=== PATIENT | male | born 1955 | race Caucasian/White ===

== ENCOUNTER 2024-06-30 11:39 | Inpatient (IN) | payer OTHER, SELFPAY ==
[2024-06-30] VITALS (8 sets, daily range): BP systolic 97–149; BP diastolic 58–136; BMI 24.2; BMI 23.3
[2024-06-30] MEDS: TYLENOL/FEVERALL 650 MG RECTAL (09:02)
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
[2024-06-30 09:13] LABS: % Basophils 0.2 % (0-2); % Eosinophils 0.1 % (0-6); % Immature Granulocytes 0.5 % (0-0.5); % Lymphocytes 7.7 % (20.5-51.1); % Monocytes 7.3 % (1.7-9.3); % Neutrophils 84.2 % (42.2-75.2); Absolute Immature Granulocytes 0.1 10^3/uL (0-0.05); Absolute Neutrophils 11.2 10^3/uL (1.4-6.5); Hematocrit 31.6 % (39.0-52.0); Hemoglobin 10.3 g/dL (13.0-18.0); Mean Corp Hgb Conc. 32.6 g/dL (33.0-37.0); Mean Corpuscular Hgb 29.3 pg (27.0-31.0); Mean Platelet Volume 9.8 fL (7.4-10.4); Nucleated Red Blood Cells % 0 % (-); Platelet Count 250 10^3/uL (130-400); Red Blood Cell Count 3.51 10^6/uL (4.70-6.10); Red Cell Dist. Width 15.2 % (11.5-14.5); White Blood Cell Count 13.3 10^3/uL (4.8-10.8)
[2024-06-30 09:16] LABS: Urine Albumin 2+ (Neg - Trace); Urine Bilirubin Negative (Negative); Urine Character Very Cloudy (Clear); Urine Color Amber; Urine Glucose Negative (Negative); Urine Ketone Negative (Negative); Urine Leukocyte 2+ (Negative); Urine Nitrite Positive (Negative); Urine Occult Blood 4+ (Negative); Urine Urobilinogen Negative (Neg - 1+)
[2024-06-30 09:29] LABS: Lactic Acid 1.4 mmol/L (0.7-2.0)
[2024-06-30] MEDS: ROCEPHIN 1000 MG IV (09:47)
[2024-06-30] MEDS: NSS 1000 IV ×2 (09:48→18:15)
[2024-06-30 10:21] LABS: Urine Bacteria Many (Negative); Urine Red Blood Cell 16-20 /HPF (0-2); Urine White Cell 60-70 /HPF (0-5)
[2024-06-30 10:33] LABS: ALT (SGPT) 25 U/L (0-50); AST (SGOT) 17 U/L (17-59); Albumin 3.1 g/dl (3.5-5.0); Alkaline Phosphatase 105 U/L (38-126); Blood Urea Nitrogen 67 mg/dl (9-20); Calcium 8.9 mg/dl (8.4-10.2); Carbon Dioxide 22 mmol/L (22-30); Chloride 100 mmol/L (98-107); Estimated Creatinine Clearance 29 ml/min; Glucose 118 mg/dl (70-99); Sodium 137 mmol/L (135-145); Total Bilirubin 0.8 mg/dl (0.2-1.3); Total Protein 6.2 g/dl (6.3-8.2)
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
[2024-06-30 17:55] LABS: Iron 32 ug/dl (49-181)
[2024-06-30 18:04] LABS: Percent Saturation 19 % (20-50); Total Iron Binding Capacity 163 ug/dl (261-462)
[2024-06-30] MEDS: PROTONIX 40 MG PO (18:14)
[2024-06-30] MEDS: STERILE WATER FOR INJECTION 10 ML IV (18:14)
[2024-06-30] MEDS: MAXIPIME 1000 MG IV (18:14)
[2024-06-30 18:20] LABS: TSH 1.39 uIU/ml (0.47-4.68)
[2024-06-30] MEDS: TYLENOL 650 MG PO (18:21)
--- NOTE | 2024-06-30 18:38 | PTCARENOTE ---
Patient received from ED. Patient with a temp of 100.2. Tylenol given. other VSS stable. Patient whith chronic jenkins draining yellow/ brown urine, biliary drain and abcess drain on L back. Skin assessment documented. See documentation. IVF hung per
order. Patient reading NSR on tele monitor. Patient AAOx3. Call gee within reach. Regular diet in. Patient ordered dinner. Brother at bedside.
[2024-06-30 18:39] LABS: Vitamin B12 707 pg/ml (239-931)
[2024-06-30 19:43] LABS: Procalcitonin 5.33 ng/ml (0.0-0.25)
--- NOTE | 2024-06-30 19:45 | PTCARENOTE ---
House BRIEF WRITER notified of Pt's procalcitonin 5.33. Cefepime initiated on 2N, IVF infusing. VSS. No new orders at this time.
[2024-06-30] MEDS: RISPERDAL 0.5 MG PO (20:06)
[2024-06-30] MEDS: NEURONTIN 300 MG PO (20:06)
[2024-06-30] MEDS: ELIQUIS 5 MG PO (20:06)
[2024-06-30] MEDS: MOLNUPIRAVIR (EUA) 800 MG PO (21:19)
[2024-06-30] MEDS: TRANDATE PO (21:20)
[2024-06-30] MEDS: REMERON 15 MG PO (21:23)
[2024-07-01] MEDS: NSS 1000 IV ×3 (02:17→16:35)
[2024-07-01 07:06] LABS: Blood Urea Nitrogen 40 mg/dl (9-20); Calcium 8.4 mg/dl (8.4-10.2); Carbon Dioxide 21 mmol/L (22-30); Chloride 107 mmol/L (98-107); Estimated Creatinine Clearance 66 ml/min; Glucose 92 mg/dl (70-99); Magnesium 1.8 mg/dl (1.6-2.3); Potassium 3.5 mmol/L (3.5-5.1); Sodium 140 mmol/L (135-145); eGFR > 60.00
[2024-07-01 07:15] VITALS: BP 107/59
[2024-07-01] MEDS: PROTONIX 40 MG PO (08:34)
[2024-07-01] MEDS: VITAMIN C 500 MG PO (08:34)
[2024-07-01] MEDS: FEOSOL 325 MG PO (08:34)
[2024-07-01] MEDS: ELIQUIS 5 MG PO ×2 (08:34→21:09)
[2024-07-01] MEDS: RISPERDAL 0.5 MG PO ×2 (08:34→21:09)
[2024-07-01] MEDS: NEURONTIN 300 MG PO ×2 (08:34→21:09)
[2024-07-01] MEDS: TRANDATE PO (08:35)
[2024-07-01] MEDS: MOLNUPIRAVIR (EUA) 800 MG PO ×2 (08:54→21:11)
[2024-07-01 09:04] LABS: Blood Urea Nitrogen 38 mg/dl (9-20); Calcium 8.5 mg/dl (8.4-10.2); Carbon Dioxide 22 mmol/L (22-30); Chloride 107 mmol/L (98-107); Estimated Creatinine Clearance 66 ml/min; Glucose 95 mg/dl (70-99); Magnesium 1.7 mg/dl (1.6-2.3); Potassium 3.5 mmol/L (3.5-5.1); Sodium 139 mmol/L (135-145); eGFR > 60.00
[2024-07-01 09:22] LABS: % Basophils 0.1 % (0-2); % Eosinophils 1.3 % (0-6); % Immature Granulocytes 0.5 % (0-0.5); % Lymphocytes 11.6 % (20.5-51.1); % Monocytes 7.5 % (1.7-9.3); Absolute Eosinophils 0.1 10^3/uL (0-0.7); Absolute Immature Granulocytes 0.1 10^3/uL (0-0.05); Absolute Lymphocytes 1.1 10^3/uL (1.2-3.4); Absolute Monocytes 0.7 10^3/uL (0.1-0.6); Absolute Neutrophils 7.7 10^3/uL (1.4-6.5); Hematocrit 23.8 % (39.0-52.0); Hemoglobin 7.5 g/dL (13.0-18.0); Mean Corp Hgb Conc. 31.5 g/dL (33.0-37.0); Mean Corpuscular Volume 91.9 fL (80.0-94.0); Mean Platelet Volume 9.3 fL (7.4-10.4); Nucleated Red Blood Cells % 0 % (-); Platelet Count 225 10^3/uL (130-400); Red Blood Cell Count 2.59 10^6/uL (4.70-6.10); Red Cell Dist. Width 14.7 % (11.5-14.5); White Blood Cell Count 9.7 10^3/uL (4.8-10.8)
--- NOTE | 2024-07-01 10:15 | PTOTSP ---
Dysphagia Evaluation
No significant signs concerning for oral/pharyngeal dysphagia or aspiration observed.
Patient with concern for R midlung atelectasis or PNA on CXR 06/30/2024 but also with COVID-19 infection. Low suspicion for aspiration. If this does not resolved with medical treatment and there is concern for silent aspiration please reconsult via
video swallow study.
Recommend:
1. Regular, Thin Liquids
2. Medications as best tolerated
3. General aspiration precautions
4. Oral care 2x daily
5. Will sign off. Please reconsult as appropriate.
--- NOTE | 2024-07-01 10:25 | WOUNDNOTE ---
RIGHT LOWER LEG
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
[2024-07-01 11:33] VITALS: BP 106/58
[2024-07-01] MEDS: FERRLECIT 110 MG IV (12:45)
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
[2024-07-01 14:05] VITALS: BMI 23.3
[2024-07-01 15:15] VITALS: BP 113/61
[2024-07-01] MEDS: MAXIPIME 1000 MG IV (16:35)
[2024-07-01] MEDS: STERILE WATER FOR INJECTION 10 ML IV (16:35)
[2024-07-01] MEDS: TYLENOL 650 MG PO (16:45)
[2024-07-01 19:23] VITALS: BP 122/51
[2024-07-01 21:06] VITALS: BP 122/72
[2024-07-01] MEDS: REMERON 15 MG PO (21:09)
[2024-07-01] MEDS: TRANDATE 100 MG PO (21:09)
[2024-07-01 23:44] VITALS: BP 134/64
[2024-07-02 03:47] VITALS: BP 119/65
[2024-07-02 06:08] LABS: % Basophils 0.2 % (0-2); % Eosinophils 1.7 % (0-6); % Immature Granulocytes 0.9 % (0-0.5); % Lymphocytes 15.8 % (20.5-51.1); % Monocytes 9.1 % (1.7-9.3); % Neutrophils 72.3 % (42.2-75.2); Absolute Eosinophils 0.2 10^3/uL (0-0.7); Absolute Immature Granulocytes 0.1 10^3/uL (0-0.05); Absolute Lymphocytes 1.5 10^3/uL (1.2-3.4); Absolute Monocytes 0.8 10^3/uL (0.1-0.6); Absolute Neutrophils 6.6 10^3/uL (1.4-6.5); Hematocrit 25.9 % (39.0-52.0); Mean Corp Hgb Conc. 30.9 g/dL (33.0-37.0); Mean Corpuscular Hgb 30.3 pg (27.0-31.0); Mean Corpuscular Volume 98.1 fL (80.0-94.0); Mean Platelet Volume 9.4 fL (7.4-10.4); Nucleated Red Blood Cells % 0 % (-); Platelet Count 241 10^3/uL (130-400); Red Blood Cell Count 2.64 10^6/uL (4.70-6.10); Red Cell Dist. Width 14.5 % (11.5-14.5); White Blood Cell Count 9.2 10^3/uL (4.8-10.8)
[2024-07-02 06:29] LABS: Blood Urea Nitrogen 31 mg/dl (9-20); Calcium 8.4 mg/dl (8.4-10.2); Carbon Dioxide 22 mmol/L (22-30); Chloride 111 mmol/L (98-107); Estimated Creatinine Clearance 73 ml/min; Glucose 96 mg/dl (70-99); Potassium 3.7 mmol/L (3.5-5.1); Sodium 142 mmol/L (135-145); eGFR > 60.00
[2024-07-02 07:57] VITALS: BP 123/61
[2024-07-02] MEDS: RISPERDAL 0.5 MG PO ×2 (09:03→20:35)
[2024-07-02] MEDS: PROTONIX 40 MG PO (09:03)
[2024-07-02] MEDS: TRANDATE 100 MG PO ×2 (09:03→20:35)
[2024-07-02] MEDS: NEURONTIN 300 MG PO ×2 (09:03→20:35)
[2024-07-02] MEDS: FEOSOL 325 MG PO (09:04)
[2024-07-02] MEDS: VITAMIN C 500 MG PO (09:04)
[2024-07-02] MEDS: ELIQUIS 5 MG PO ×2 (09:04→20:35)
[2024-07-02] MEDS: MOLNUPIRAVIR (EUA) 800 MG PO ×2 (09:06→20:35)
[2024-07-02 11:15] VITALS: BP 134/67
[2024-07-02 11:47] VITALS: BP 130/75; PULSE 75; O2SAT 95
--- NOTE | 2024-07-02 14:13 | CM ---
Patient seen at bedside
Dx: Covid +, Complicated UTI
PT/OT eval rec acute rehab
Spoke with patient & brother prefer [facility]
Referral placed in [facility]
CM will need to obtain insurance authorization
PLAN: PT/OT rec acute rehab-referral in [facility], will need to obtain ins auth
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
[2024-07-02] MEDS: STERILE WATER FOR INJECTION 10 ML IV (19:00)
[2024-07-02 19:03] VITALS: BP 131/71
[2024-07-02] MEDS: MAXIPIME 1000 MG IV (19:10)
[2024-07-02] MEDS: REMERON 15 MG PO (20:36)
[2024-07-02 23:30] VITALS: BP 140/75
[2024-07-03] VITALS (7 sets, daily range): BP systolic 121–146; BP diastolic 65–78; PULSE 80; O2SAT 95
[2024-07-03 05:17] LABS: % Basophils 0.4 % (0-2); % Eosinophils 2.9 % (0-6); % Immature Granulocytes 1.3 % (0-0.5); % Lymphocytes 13.3 % (20.5-51.1); % Monocytes 7.7 % (1.7-9.3); % Neutrophils 74.4 % (42.2-75.2); Absolute Eosinophils 0.3 10^3/uL (0-0.7); Absolute Immature Granulocytes 0.1 10^3/uL (0-0.05); Absolute Lymphocytes 1.4 10^3/uL (1.2-3.4); Absolute Monocytes 0.8 10^3/uL (0.1-0.6); Hemoglobin 8.3 g/dL (13.0-18.0); Mean Corp Hgb Conc. 29.6 g/dL (33.0-37.0); Mean Corpuscular Hgb 29.2 pg (27.0-31.0); Mean Corpuscular Volume 98.6 fL (80.0-94.0); Nucleated Red Blood Cells % 0 % (-); Platelet Count 241 10^3/uL (130-400); Red Blood Cell Count 2.84 10^6/uL (4.70-6.10); Red Cell Dist. Width 14.5 % (11.5-14.5); White Blood Cell Count 10.7 10^3/uL (4.8-10.8)
[2024-07-03 05:40] LABS: Blood Urea Nitrogen 24 mg/dl (9-20); Calcium 8.7 mg/dl (8.4-10.2); Carbon Dioxide 25 mmol/L (22-30); Chloride 110 mmol/L (98-107); Estimated Creatinine Clearance 73 ml/min; Glucose 99 mg/dl (70-99); Potassium 3.6 mmol/L (3.5-5.1); Sodium 145 mmol/L (135-145); eGFR > 60.00
[2024-07-03] MEDS: RISPERDAL 0.5 MG PO ×2 (10:07→21:15)
[2024-07-03] MEDS: TRANDATE 100 MG PO ×2 (10:07→21:13)
[2024-07-03] MEDS: VITAMIN C 500 MG PO (10:07)
[2024-07-03] MEDS: ELIQUIS 5 MG PO ×2 (10:07→21:14)
[2024-07-03] MEDS: PROTONIX 40 MG PO (10:07)
[2024-07-03] MEDS: NEURONTIN 300 MG PO ×2 (10:07→21:14)
[2024-07-03] MEDS: FEOSOL 325 MG PO (10:08)
[2024-07-03] MEDS: MOLNUPIRAVIR (EUA) 800 MG PO ×2 (10:18→21:15)
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
[2024-07-03] MEDS: MAXIPIME 1000 MG IV (17:11)
[2024-07-03] MEDS: STERILE WATER FOR INJECTION 10 ML IV (17:11)
--- NOTE | 2024-07-03 18:36 | PTCARENOTE ---
changed pt's colostomy appliance, leaking to the left side
[2024-07-03] MEDS: REMERON 15 MG PO (21:15)
[2024-07-04 03:45] VITALS: BP 147/78
[2024-07-04 06:21] LABS: Hematocrit 26.1 % (39.0-52.0); Hemoglobin 7.9 g/dL (13.0-18.0); Mean Corp Hgb Conc. 30.3 g/dL (33.0-37.0); Mean Corpuscular Hgb 29.7 pg (27.0-31.0); Mean Corpuscular Volume 98.1 fL (80.0-94.0); Platelet Count 250 10^3/uL (130-400); Red Blood Cell Count 2.66 10^6/uL (4.70-6.10); Red Cell Dist. Width 14.3 % (11.5-14.5); White Blood Cell Count 8.7 10^3/uL (4.8-10.8)
[2024-07-04 06:44] LABS: Blood Urea Nitrogen 17 mg/dl (9-20); Calcium 8.5 mg/dl (8.4-10.2); Carbon Dioxide 28 mmol/L (22-30); Chloride 108 mmol/L (98-107); Estimated Creatinine Clearance 91 ml/min; Glucose 87 mg/dl (70-99); Potassium 3.7 mmol/L (3.5-5.1); Sodium 141 mmol/L (135-145); eGFR > 60.00
[2024-07-04 07:10] VITALS: BP 148/79
[2024-07-04 08:44] VITALS: BP 125/60
[2024-07-04] MEDS: NEURONTIN 300 MG PO ×2 (08:55→22:13)
[2024-07-04] MEDS: RISPERDAL 0.5 MG PO ×2 (08:56→22:14)
[2024-07-04] MEDS: VITAMIN C 500 MG PO (08:56)
[2024-07-04] MEDS: TRANDATE 100 MG PO ×2 (08:56→22:13)
[2024-07-04] MEDS: FEOSOL 325 MG PO (08:56)
[2024-07-04] MEDS: ELIQUIS 5 MG PO ×2 (08:56→22:13)
[2024-07-04] MEDS: PROTONIX 40 MG PO (09:14)
[2024-07-04] MEDS: MOLNUPIRAVIR (EUA) 800 MG PO ×2 (09:14→22:14)
[2024-07-04] MEDS: CIPRO 500 MG PO ×2 (09:15→22:13)
[2024-07-04] MEDS: MIRALAX 17 GRAMS PO (09:15)
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
--- NOTE | 2024-07-04 11:19 | CM ---
Chart reviewed
Spoke with pts brother regarding rehab/snf
[facility]'s - 1st choice - LM at admissions
[facility] - staff unavailable
Brother given choice list from [employer] to review for additional options
Will need auth
Plan - snf/rehab when bed obtained
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
[2024-07-04 15:50] VITALS: BP 130/73
[2024-07-04] MEDS: REMERON 15 MG PO (22:13)
[2024-07-04 23:27] VITALS: BP 125/60
[2024-07-05 05:46] LABS: % Basophils 0.1 % (0-2); % Eosinophils 3.5 % (0-6); % Immature Granulocytes 1.1 % (0-0.5); % Lymphocytes 18.1 % (20.5-51.1); % Monocytes 7.5 % (1.7-9.3); % Neutrophils 69.7 % (42.2-75.2); Absolute Eosinophils 0.3 10^3/uL (0-0.7); Absolute Immature Granulocytes 0.1 10^3/uL (0-0.05); Absolute Lymphocytes 1.7 10^3/uL (1.2-3.4); Absolute Monocytes 0.7 10^3/uL (0.1-0.6); Absolute Neutrophils 6.7 10^3/uL (1.4-6.5); Hematocrit 25.2 % (39.0-52.0); Hemoglobin 7.6 g/dL (13.0-18.0); Mean Corp Hgb Conc. 30.2 g/dL (33.0-37.0); Mean Corpuscular Hgb 29.2 pg (27.0-31.0); Mean Corpuscular Volume 96.9 fL (80.0-94.0); Mean Platelet Volume 8.9 fL (7.4-10.4); Nucleated Red Blood Cells % 0 % (-); Platelet Count 248 10^3/uL (130-400); White Blood Cell Count 9.6 10^3/uL (4.8-10.8)
[2024-07-05 06:10] LABS: ALT (SGPT) 12 U/L (0-50); AST (SGOT) 15 U/L (17-59); Albumin 2.4 g/dl (3.5-5.0); Alkaline Phosphatase 65 U/L (38-126); Blood Urea Nitrogen 14 mg/dl (9-20); Calcium 8.3 mg/dl (8.4-10.2); Carbon Dioxide 26 mmol/L (22-30); Chloride 104 mmol/L (98-107); Estimated Creatinine Clearance 122 ml/min; Glucose 91 mg/dl (70-99); Potassium 3.4 mmol/L (3.5-5.1); Sodium 140 mmol/L (135-145); Total Bilirubin 0.3 mg/dl (0.2-1.3); eGFR > 60.00
[2024-07-05 07:15] VITALS: BP 136/78
[2024-07-05] MEDS: TRANDATE 100 MG PO (09:19)
[2024-07-05] MEDS: VITAMIN C 500 MG PO (09:19)
[2024-07-05] MEDS: ELIQUIS 5 MG PO ×2 (09:19→20:05)
[2024-07-05] MEDS: FEOSOL 325 MG PO (09:19)
[2024-07-05] MEDS: PROTONIX 40 MG PO (09:19)
[2024-07-05] MEDS: MOLNUPIRAVIR (EUA) 800 MG PO (09:19)
[2024-07-05] MEDS: CIPRO 500 MG PO ×2 (09:19→20:05)
[2024-07-05] MEDS: NEURONTIN 300 MG PO ×2 (09:19→20:04)
[2024-07-05] MEDS: RISPERDAL 0.5 MG PO ×2 (09:19→20:06)
[2024-07-05] MEDS: MIRALAX 17 GRAMS PO (09:20)
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
--- NOTE | 2024-07-05 12:36 | CM ---
patient chart reviewed.
PT recommend acute vs. snf - [place] liaison called from [facility]. She stated they are reviewing chart regarding if they will accept patient.
Patient brother Gianluca prefers him not to return to [facility]. Referral placed to [facility]. RONAL with Aparna at [facility]
Gianluca will contact CM later with other SNF options
PLAN: Acute vs. SNF - CM will need to obtain insurance authorization
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
[2024-07-05 14:14] VITALS: BP 129/76; PULSE 83; O2SAT 94
[2024-07-05 14:34] VITALS: BP 129/76; PULSE 83; O2SAT 94
[2024-07-05 15:05] VITALS: BP 118/87
[2024-07-05] MEDS: TRANDATE PO ×2 (20:05→20:11)
[2024-07-05] MEDS: REMERON 15 MG PO (22:23)
[2024-07-05 23:45] VITALS: BP 135/76
[2024-07-06 06:00] VITALS: BMI 22.2
[2024-07-06 07:10] VITALS: BP 129/77
[2024-07-06] MEDS: MIRALAX 17 GRAMS PO (08:45)
[2024-07-06] MEDS: TRANDATE 100 MG PO ×2 (08:46→20:21)
[2024-07-06] MEDS: ELIQUIS 5 MG PO ×2 (08:46→20:21)
[2024-07-06] MEDS: VITAMIN C 500 MG PO (08:46)
[2024-07-06] MEDS: NEURONTIN 300 MG PO ×2 (08:47→20:21)
[2024-07-06] MEDS: RISPERDAL 0.5 MG PO ×2 (08:47→20:21)
[2024-07-06] MEDS: CIPRO 500 MG PO ×2 (08:47→20:21)
[2024-07-06] MEDS: PROTONIX 40 MG PO (08:47)
[2024-07-06] MEDS: FEOSOL 325 MG PO (08:47)
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
--- NOTE | 2024-07-06 11:13 | CM ---
Addendum entered by An Álvarez 07/06/24 15:20:
Call back from Eloina at [facility] they cannot accept patient.
Original Note:
Spoke with Eloina liacharley at [facility] - PT rec acute vs. SNF
Eloina requested updated PT/OT notes - faxed to her - stated medical staff director to review
tt Dr. Edmonds regarding PM&R consult - also spoke with Vivian yuen [facility]
Insurance authorization will need to be obtained prior to d/c
family does not wish for patient to return to [facility]
Multiple referrals in [facility] - [facility]
PLAN: acute vs. SNF
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
[2024-07-06 15:55] VITALS: BP 118/78
[2024-07-06] MEDS: REMERON 15 MG PO (21:53)
[2024-07-06 23:27] VITALS: BP 130/68
[2024-07-07 06:00] VITALS: BMI 22.0
[2024-07-07 07:15] VITALS: BP 150/72
[2024-07-07] MEDS: CIPRO 500 MG PO ×2 (08:42→19:57)
[2024-07-07] MEDS: VITAMIN C 500 MG PO (08:43)
[2024-07-07] MEDS: NEURONTIN 300 MG PO ×2 (08:43→19:56)
[2024-07-07] MEDS: FEOSOL 325 MG PO (08:43)
[2024-07-07] MEDS: TRANDATE 100 MG PO ×2 (08:43→19:57)
[2024-07-07] MEDS: ELIQUIS 5 MG PO ×2 (08:43→19:57)
[2024-07-07] MEDS: RISPERDAL 0.5 MG PO ×2 (08:43→19:57)
[2024-07-07] MEDS: PROTONIX 40 MG PO (08:43)
[2024-07-07] MEDS: MIRALAX PO (08:43)
--- NOTE | 2024-07-07 13:46 | CM ---
Addendum entered by An Álvarez 07/07/24 15:37:
Spoke with Sonali at [facility] - will have medical scheduler review & call rehabilitation caseworker tomorrow morning.
Original Note:
Spoke with patient brother Gianluca - He requested a referral be sent to [facility] for Rehab in [place], [place] (acute)
Spoke with Leila in admissions & [facility]. She will look at it today & call CM if they can accept patient.
Eva at [facility] stated they can accept patient - bed available. Gianluca agreeable with [facility] if [facility] cannot accept.
Will need to get insurance authorization for SNF unless [facility] will accept patient.
PLAN: [facility] SNF unless [facility] accepts patient. CM will need to obtain ins. auth.
[facility] Report #: [phone] Fax #: [phone]
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
[2024-07-07 16:00] VITALS: BP 110/75
[2024-07-07] MEDS: REMERON 15 MG PO (21:21)
[2024-07-07 23:16] VITALS: BP 115/71
[2024-07-08 07:15] VITALS: BP 128/79
--- NOTE | 2024-07-08 09:20 | CM ---
Addendum entered by An Álvarez 07/08/24 14:02:
Notified Eva at [facility] recommendation of from [facility] air mattress
Transport time 1700 via ambulance
Original Note:
Received call from Sonali Lim at [facility] acute rehab & patient is denied by their facility.
Patient accepted at [facility]
Authorization requested this am at [id number] for [facility]
Approved 07/08/24 NRD:07/12/24 AUTHORIZATION APPROVAL #: [id number]
Fax updates to: [phone] Edmonds
Called Eva at [facility] & updated her with auth information
Called patient brother Gianluca & RONAL
PLAN: [facility]
Report #: [phone]
Fax #: [phone]
[2024-07-08] MEDS: NEURONTIN 300 MG PO (09:29)
[2024-07-08] MEDS: ELIQUIS 5 MG PO (09:30)
[2024-07-08] MEDS: PROTONIX 40 MG PO (09:30)
[2024-07-08] MEDS: FEOSOL 325 MG PO (09:30)
[2024-07-08] MEDS: CIPRO 500 MG PO (09:30)
[2024-07-08] MEDS: RISPERDAL 0.5 MG PO (09:30)
[2024-07-08] MEDS: MIRALAX PO (09:32)
[2024-07-08] MEDS: VITAMIN C 500 MG PO (09:33)
[2024-07-08] MEDS: TRANDATE 100 MG PO (09:33)
--- NOTE | 2024-07-08 12:11 | WOUNDNOTE ---
R LATERAL LOWER LEG
--- NOTE | 2024-07-08 12:12 | WOUNDNOTE ---
R LATERAL POSTERIOR LOWER LEG
--- NOTE | 2024-07-08 12:47 | WOUNDNOTE ---
WON RN NOTE: Followed up today with assist of nurse Bryanna. Patient transferred back to bed with 2 assist from recliner chair. Patient refusing air chair cushion, he states' It's not offloading my butt enough' Called [facility] for foam cushion, can use on
top of air cushion when sitting, patient willing to try. Patient also not using quilted heel boots, both feet with foot drop. Called [facility] for TruVue lite fiber filled heel boots that patient wants to try. Can take both seat cushions and heel boots
upon discharge to use at Rehab. Patient has chronic edema and foot drop in feet, he states was using compression stockings in past but no special shoes. Arun wraps knee high applied to both legs, can remove at hs. Also ordered additional 2 1/4'
Cherokee 2 piece pouches, staff can change tomorrow. No leakage noted from current appliance. 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 Will update wound care to use Santyl instead of
honey gel starting tomorrow. All Wound dressings changed today. Confirmed the above changes to wound care/compression with Dr. Edmonds. Updated care plan, discharge instructions and nurse. Made CM aware that patient will need an air mattress at
[facility], she has let them know. Will follow as needed.
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
[2024-07-08 15:15] VITALS: BP 124/76
--- NOTE | 2024-07-08 17:13 | PTCARENOTE ---
Patient discharged to [facility], transported by Acute Care. Report called to Lindsey at facility by this RN. Patient's IV removed, transferred back to bed by this RN and tech. Ostomy appliance changed prior to transport. Heel boots on patient, belongings
gathered in room and placed in patient belonging bag and handed to transport team. Patient holding cell phone and wearing glasses.
== END 2024-07-08 17:45 | DRG 698 ==
LOC: 2 NORTH 11:39
PROVIDERS: Hospitalist; Internal Medicine; Nurse Practitioner Gerontology; ADMITTING PHYSICIAN Internal Medicine; CONSULT PHYSICIAN Physical Medicine & Rehabilitation; CONSULT PHYSICIAN Urology; EMERGENCY PHYSICIAN Emergency Medicine; FAMILY PHYSICIAN Internal Medicine
DX: T83.511A Infection and inflammatory reaction due to indwelling urethral catheter, initial encounter (principal); G92.8 Other toxic encephalopathy; U07.1 COVID-19; J12.82 Pneumonia due to coronavirus disease 2019; N17.9 Acute kidney failure, unspecified; K81.0 Acute cholecystitis; N13.6 Pyonephrosis; R33.8 Other retention of urine; I10 Essential (primary) hypertension; E78.00 Pure hypercholesterolemia, unspecified; F41.1 Generalized anxiety disorder; T50.915A Adverse effect of multiple unspecified drugs, medicaments and biological substances, initial encounter; D63.8 Anemia in other chronic diseases classified elsewhere; D53.9 Nutritional anemia, unspecified; L89.150 Pressure ulcer of sacral region, unstageable; F32.A Depression, unspecified; G62.9 Polyneuropathy, unspecified; T83.091A Other mechanical complication of indwelling urethral catheter, initial encounter; R26.89 Other abnormalities of gait and mobility; B96.5 Pseudomonas (aeruginosa) (mallei) (pseudomallei) as the cause of diseases classified elsewhere; B96.4 Proteus (mirabilis) (morganii) as the cause of diseases classified elsewhere; Y84.6 Urinary catheterization as the cause of abnormal reaction of the patient, or of later complication, without mention of misadventure at the time of the procedure; Z96.653 Presence of artificial knee joint, bilateral; Z93.3 Colostomy status; Z86.718 Personal history of other venous thrombosis and embolism; Z79.01 Long term (current) use of anticoagulants; Z79.899 Other long term (current) drug therapy; Z87.81 Personal history of (healed) traumatic fracture
CPT/HCPCS: 51702; 70450; 71045; 74176; 76770; 80048; 80053; 81003; 81015; 82607; 83540; 83550; 83605; 83735; 84145; 84443; 85025; 85027; 87040; 87077; 87086; 87186; 92610; 93005; 94760; 96361; 96374; 97110; 97112; 97163; 97167; 97530; 97535; 99285; J2916

== ENCOUNTER 2024-07-09 00:20 | Emergency (ER) | payer OTHER, SELFPAY ==
[2024-07-09 00:22] VITALS: BP 138/82
--- NOTE | 2024-07-09 00:38 | ED.GENMED ---
History of Present Illness
<MARY JO Vale - Last Filed: 07/09/24 02:59>
General
Chief Complaint: Fall
Source: patient
Exam Limitations: none
Time Seen by Provider: 07/09/24 00:21
History of Present Illness
History of Present Illness:
This is a 69 year old male that comes in with by ambulance with c/o fall from bed. States that he was just discharged today form the hospital and arrived at [facility] at 9pm. States that this is his first night there and he fell out of the bed.
States that he hit the floor with his head and face. Denies any LOC. Denies any fever, chills, chest pain, SOB, abd pain, nausea, vomiting, diarrhea, headache, dizziness.
Past History
<MARY JO Vale - Last Filed: 07/09/24 02:59>
Past History
ED Past Medical History: GERD, HTN, Hypercholesterolemia, Psychiatric (Anxiety, Depression ) and Other (Pleural effusion, DVT, Anemia)
ED Past Surgical History: Bowel resection (Colon resection with Colostomy), Orthopedic (Right hip surgery) and Urological (Bilateral Nephrostomy tubes)
Social History
Tobacco: Non-smoker
Alcohol: None
Personal: Single
Living: [facility]
Review of Systems
<MARY JO Vale - Last Filed: 07/09/24 02:59>
Review of Systems
All Other Systems: ROS reviewed and negative except as documented in HPI and ROS
Constitutional: Reports no symptoms; Denies fever or chills
EENT: Reports no symptoms
Respiratory: Reports no symptoms; Denies cough or trouble breathing
Cardiac: Reports no symptoms; Denies chest pain
ABD/GI: Reports no symptoms; Denies abdominal pain, nausea, vomiting or diarrhea
: Reports no symptoms
Musculoskeletal: Reports no symptoms
Skin: Reports other (Abrasion left lower lip)
Neurological: Reports no symptoms; Denies dizzy or headache
Psychiatric: Reports no symptoms
Phy Exam
<MARY JO Vale - Last Filed: 07/09/24 02:59>
General Physical Exam
General Presentation: no apparent distress
General age: appears stated age
General Skin: warm and dry
General Habitus: debilitated and elderly
General Mental: alert
General Hydration: dry mucous membranes
ENT Exam
ENT Exam: TM's normal, pharynx normal, neck supple and other (Nasal tenderness and swelling. right sided blood noted in nares, no further bleeding at this time. )
Eye Exam
Eye Exam: EOMI
Cardiovascular Exam
Cardiovascular Exam: regular rate/rhythm and normal peripheral pulses
Pulmonary Exam
Pulmonary Exam: no respiratory distress, chest non tender, no rhonchi, no wheezing, no cough and other (rales right base)
Gastrointestinal Exam
Gastrointestinal Exam: normal bowel sounds, soft, no organomegaly, no pulsatile mass, non distended and surgical scar (Mid line abd surgical scar with healing wound on the distal aspect)
External Findings: colostomy and nephrostomy drain (Bilateral, )
Musculoskeletal Exam
Musculoskeletal Exam: other (Negative for any cervical neck tenderness)
Skin Exam
Skin Exam: normal color, warm/dry, no rash, no petechia and other (Bilateral nephrostomy sites clean and dry. Mid line surgical incision with healing wound on the distal aspect. Abrasion to the left lower lip. )
Psychiatric Exam
Psychiatric Exam: normal mood/affect
Course
<MARY JO Vale - Last Filed: 07/09/24 02:59>
Orders/Labs/Results
Orders:
Orders
07/09/24 00:37
CT Cervical Spine W/o Iv Contr Urgent
Comment:
Reason For Exam: Fall from bed
CT Facial Bones W/o Iv Contras Urgent
Comment:
Reason For Exam: fall from bed hitting face.
CT Head W/o Iv Contrast Urgent
Comment:
Reason For Exam: Fall from bed on eliquis
07/09/24 02:24
Complete Blood Count/With Diff Urgent
Comprehensive Metabolic Panel Urgent
Prothrombin Time Urgent
07/09/24 02:28
Prothrombin Complex(Pcc),Human [Kcentra] 1,765 unit Empty Viaflex Container 100 ml [Viaflex Empty Container] 0 ml IV NOW
Does patient have a dx of serious acute active bleeding?: Yes
Does patient have prior history of HIT?: No
07/09/24 02:29
Levetiracetam Injectable [Keppra] 1,000 mg IV NOW STA
Abnormal Lab Results
07/09/24
02:24
RBC 2.61 L 10^6/uL
(4.70-6.10)
Hgb 7.7 L g/dL
(13.0-18.0)
Hct 24.4 L %
(39.0-52.0)
MCHC 31.6 L g/dL
(33.0-37.0)
Abs Immat Gran (auto) 0.1 H 10^3/uL
(0-0.05)
Absolute Neuts (auto) 7.5 H 10^3/uL
(1.4-6.5)
Immature Gran % 1.0 H %
(0-0.5)
Lymphocytes % 18.0 L %
(20.5-51.1)
PT 18.3 H Sec
(11.4-14.6)
Glucose 146 H mg/dl
(70-99)
Total Bilirubin 0.1 L mg/dl
(0.2-1.3)
Total Protein 5.7 L g/dl
(6.3-8.2)
Albumin 2.7 L g/dl
(3.5-5.0)
07/09/24 02:24
07/09/24 02:24
H/H low but has slightly increased from prior labs, PT 18.3 with INR 1.47, Hyperglycemia, Total radha slightly low. Total protein low. Albumin low.
Vital Signs
Initial and Last Documented VS:
Initial Vital Signs
Temp Pulse Resp BP Pulse Ox
98.2 F 90 16 138/82 97
07/09/24 00:22 07/09/24 00:22 07/09/24 00:22 07/09/24 00:22 07/09/24 00:22
Last Documented Vital Signs
Temp Pulse Resp BP Pulse Ox
98.2 F 91 23 105/63 96
07/09/24 00:22 07/09/24 02:47 07/09/24 02:47 07/09/24 02:47 07/09/24 01:15
<Ta Leahy, DO - Last Filed: 07/09/24 02:30>
Orders/Labs/Results
Orders:
Orders
07/09/24 00:37
CT Cervical Spine W/o Iv Contr Urgent
Comment:
Reason For Exam: Fall from bed
CT Facial Bones W/o Iv Contras Urgent
Comment:
Reason For Exam: fall from bed hitting face.
CT Head W/o Iv Contrast Urgent
Comment:
Reason For Exam: Fall from bed on eliquis
07/09/24 02:24
Complete Blood Count/With Diff Urgent
Comprehensive Metabolic Panel Urgent
Prothrombin Time Urgent
07/09/24 02:28
Prothrombin Complex(Pcc),Human [Kcentra] 1,765 unit Empty Viaflex Container 100 ml [Viaflex Empty Container] 0 ml IV NOW
Does patient have a dx of serious acute active bleeding?: Yes
Does patient have prior history of HIT?: No
07/09/24 02:29
Levetiracetam Injectable [Keppra] 1,000 mg IV NOW STA
Abnormal Lab Results
07/09/24
02:24
RBC 2.61 L 10^6/uL
(4.70-6.10)
Hgb 7.7 L g/dL
(13.0-18.0)
Hct 24.4 L %
(39.0-52.0)
MCHC 31.6 L g/dL
(33.0-37.0)
Abs Immat Gran (auto) 0.1 H 10^3/uL
(0-0.05)
Absolute Neuts (auto) 7.5 H 10^3/uL
(1.4-6.5)
Immature Gran % 1.0 H %
(0-0.5)
Lymphocytes % 18.0 L %
(20.5-51.1)
PT 18.3 H Sec
(11.4-14.6)
Glucose 146 H mg/dl
(70-99)
Total Bilirubin 0.1 L mg/dl
(0.2-1.3)
Total Protein 5.7 L g/dl
(6.3-8.2)
Albumin 2.7 L g/dl
(3.5-5.0)
07/09/24 02:24
07/09/24 02:24
Vital Signs
Initial and Last Documented VS:
Initial Vital Signs
Temp Pulse Resp BP Pulse Ox
98.2 F 90 16 138/82 97
07/09/24 00:22 07/09/24 00:22 07/09/24 00:22 07/09/24 00:22 07/09/24 00:22
Last Documented Vital Signs
Temp Pulse Resp BP Pulse Ox
98.2 F 91 23 105/63 96
07/09/24 00:22 07/09/24 02:47 07/09/24 02:47 07/09/24 02:47 07/09/24 01:15
<MARY JO Vale - Last Filed: 07/09/24 02:59>
MDM/Problems Addressed
Differential Diagnosis Includes:
Accidental fall from bed
MDM/Problems Addressed:
This is a 69 year old male that was just discharged from the hospital on the and arrived at [facility] around 9pm. States that it is his first night there and he fell out of bed. States that he hit his head and face.
Will get CT of the head, Neck and facial bones
IN Contact with the Neurosurgeon at [facility] as patient has a subdural hematoma. Suggested that we transfer patient. [facility] trauma called and awaiting to hear back if they have a bed. Back into see patient and explained that he will need to
be transferred due to the bleed in his head. Consent for transfer signed.
No beds at [facility]. Spoke with Dr. Hill at [facility] and they will except patient in the ER as a Trauma. Dr. Hill would like his Eliquis reversed and for patient to get Keppra 1gm.
Chronic conditions affecting care:
On Eliquis
Acute Exacerbation and/or Progression of Chronic Illness:
NA
<MARY JO Vale - Last Filed: 07/09/24 02:59>
*Radiology
Radiology exam reviewed: radiology read reviewed (CT head, face and C-spine night hawk- Head New left frontal temporoparietal subdural hematoma measuring up to 3mm in thickness. No evidence of mass, effect, midline shift. Chronic microvascular
ischemic disease. Mild cerebral volume loss. Face: No acute fracture or malalignment. Left premaxillary ) and all reviewed NAD by ED Provider (CT cont-soft tissues swelling. C-spine: NO acute fracture of malalignment. Degenerative disk disease. )
*Pulse Oximetry
Patient hypoxic: no
*EKG
Interpreted by ED Provider?: NA
Rate: EKG- N/A
*Product Trainer Interpretation
Rate: Product Trainer- N/A
*Critical Care Note
Total Time (30-74mins, 75-104mins- exclusive of procedures): Not Applicable
ED Attending Note
<MARY JO Vale - Last Filed: 07/09/24 02:59>
-
Portions of this chart may have been created with voice recognition software.� Occasional wrong word or��sound alike� substitutions may have occurred due to the inherent limitations of voice recognition software.
<Ta Leayh DO - Last Filed: 07/09/24 02:30>
ED Attending Note
Patient seen and examined by attending physician: Yes
ED Attending Note:
69-year-old male presents with a fall. CT scan shows subdural. Patient to be transferred to a trauma center. I have seen this patient in conjunction with the nurse practitioner. I have reviewed and agree with her history and treatment plan. I
am independent physical exam patient is awake alert and oriented. He does have contusions and abrasions to his head and face.
Discharge Plan
Departure
Patient Disposition: Acute Care Hospital
Date of Disposition: 07/09/24
Time of Disposition: 02:33
Patient with high blood pressure during this ER visit?: Yes
Condition: Good
Covid-19: Not Applicable
Discharge Problem:
Acute subdural hematoma
Prescriptions:
No Action
acetaminophen 325 mg Tablet
650 mg PO Q6H PRN (Reason: mild pain)
Rx Instructions:
not to exceed 3000mg/24 hrs
labetalol 200 mg Tablet
100 mg PO BID
magnesium hydroxide [Milk of Magnesia] 400 mg/5 mL Suspension
30 ml PO HS PRN (Reason: constipation if no BM x3 days)
ascorbic acid (vitamin C) [Vitamin C] 500 mg Tablet
500 mg PO DAILY
bisacodyl 10 mg Suppository
10 mg [place] DAILYPRN PRN (Reason: if no results from MOM)
ferrous sulfate 325 mg (65 mg iron) Tablet
325 mg PO DAILY
lansoprazole [Prevacid] 30 mg Capsule,Delayed Release(Dr/Ec)
30 mg PO DAILY
gabapentin 300 mg Capsule
300 mg PO TID
mirtazapine [Remeron] 15 mg Tablet
15 mg PO HS
risperidone [Risperdal] 0.5 mg Tablet
0.5 mg PO BID
Eliquis 5 mg Tablet
5 mg PO BID
sodium chloride 0.9 % Solution
1 irrig IRRIGATION MOWEFR
Vashe 0.033 % Irrigation Solution
1 ea irrigation DAILY
ciprofloxacin HCl 500 mg Tablet
500 mg PO BID Qty: 4 0RF
Referrals:
Chance Joyce MD [Family Provider] -
Hospital Transfer
Other hospital: [facility]
I certify that the patient requires transfer: Yes
Discussed case with accepting physician: Dr Hill
Reason for transfer: higher level of care and specialties available
Interventions
Interventions:
*Risk Screen - Suicide Last Done: 07/09/24 00:22
*General Assessment Last Done: 07/09/24 00:22
*Neglect/Abuse Screening Last Done: 07/09/24 00:22
ED- Fall Risk Assessment Last Done: 07/09/24 00:35
*ED COVID-19 Vaccine History Last Done: 07/09/24 00:22
ED-Musculoskeletal Assessment Last Done: 07/09/24 00:35
ED- Neurological Assessment Last Done: 07/09/24 00:35
ED-Skin Assessment Last Done: 07/09/24 00:35
Discharge Date and Time
Print Language: QATARI
[2024-07-09 01:00] VITALS: BP 127/68
[2024-07-09 02:16] VITALS: BP 125/70
[2024-07-09 02:33] LABS: % Basophils 0.2 % (0-2); % Eosinophils 3.7 % (0-6); % Neutrophils 71.1 % (42.2-75.2); Absolute Eosinophils 0.4 10^3/uL (0-0.7); Absolute Immature Granulocytes 0.1 10^3/uL (0-0.05); Absolute Lymphocytes 1.9 10^3/uL (1.2-3.4); Absolute Monocytes 0.6 10^3/uL (0.1-0.6); Absolute Neutrophils 7.5 10^3/uL (1.4-6.5); Hematocrit 24.4 % (39.0-52.0); Hemoglobin 7.7 g/dL (13.0-18.0); Mean Corp Hgb Conc. 31.6 g/dL (33.0-37.0); Mean Corpuscular Hgb 29.5 pg (27.0-31.0); Mean Corpuscular Volume 93.5 fL (80.0-94.0); Mean Platelet Volume 8.8 fL (7.4-10.4); Nucleated Red Blood Cells % 0 % (-); Platelet Count 255 10^3/uL (130-400); Red Blood Cell Count 2.61 10^6/uL (4.70-6.10); Red Cell Dist. Width 14.2 % (11.5-14.5); White Blood Cell Count 10.5 10^3/uL (4.8-10.8)
[2024-07-09 02:43] LABS: INR 1.47; PT 18.3 Sec (11.4-14.6)
[2024-07-09 02:47] VITALS: BP 105/63
[2024-07-09] MEDS: KEPPRA 1000 MG IV (02:49)
[2024-07-09 02:55] LABS: ALT (SGPT) 12 U/L (0-50); AST (SGOT) 17 U/L (17-59); Albumin 2.7 g/dl (3.5-5.0); Alkaline Phosphatase 71 U/L (38-126); Blood Urea Nitrogen 18 mg/dl (9-20); Calcium 8.7 mg/dl (8.4-10.2); Carbon Dioxide 29 mmol/L (22-30); Chloride 107 mmol/L (98-107); Glucose 146 mg/dl (70-99); Potassium 3.9 mmol/L (3.5-5.1); Sodium 144 mmol/L (135-145); Total Bilirubin 0.1 mg/dl (0.2-1.3); Total Protein 5.7 g/dl (6.3-8.2); eGFR > 60.00
[2024-07-09 03:00] VITALS: BP 109/63
[2024-07-09] MEDS: KCENTRA 60 UNIT IV (03:21)
== END 2024-07-09 03:40 | disposition short-term general hospital (02) ==
LOC: EMR 00:20
PROVIDERS: Clinical Nurse Specialist Family Health; EMERGENCY PHYSICIAN Student in an Organized Health Care Education/Training Program; FAMILY PHYSICIAN Family Medicine
DX: S06.5X0A Traumatic subdural hemorrhage without loss of consciousness, initial encounter (principal); S00.81XA Abrasion of other part of head, initial encounter; W06.XXXA Fall from bed, initial encounter; I10 Essential (primary) hypertension; Z79.01 Long term (current) use of anticoagulants
CPT/HCPCS: 99285; 96374; 96375; 70450; 70486; 72125; 80053; 85025; 85610; J7168

== ENCOUNTER → 2024-07-19 11:39 | Outpatient (REF) | payer OTHER, SELFPAY ==
[2024-07-19 12:06] LABS: Hemoglobin 8.4 g/dL (13.0-18.0); Mean Corp Hgb Conc. 31.1 g/dL (33.0-37.0); Mean Corpuscular Hgb 30.4 pg (27.0-31.0); Mean Corpuscular Volume 97.8 fL (80.0-94.0); Mean Platelet Volume 9.7 fL (7.4-10.4); Platelet Count 246 10^3/uL (130-400); Red Blood Cell Count 2.76 10^6/uL (4.70-6.10); Red Cell Dist. Width 15.9 % (11.5-14.5); White Blood Cell Count 7.5 10^3/uL (4.8-10.8)
[2024-07-19 12:13] LABS: Blood Urea Nitrogen 15 mg/dl (9-20); Calcium 8.8 mg/dl (8.4-10.2); Carbon Dioxide 26 mmol/L (22-30); Chloride 105 mmol/L (98-107); Glucose 99 mg/dl (70-99); Sodium 142 mmol/L (135-145); eGFR > 60.00
== END ==
LOC: OLABP 11:39
PROVIDERS: ATTENDING PHYSICIAN Family Medicine
DX: S06.5X0D Traumatic subdural hemorrhage without loss of consciousness, subsequent encounter (principal); D64.9 Anemia, unspecified; M62.81 Muscle weakness (generalized); B96.5 Pseudomonas (aeruginosa) (mallei) (pseudomallei) as the cause of diseases classified elsewhere; G92.8 Other toxic encephalopathy; U07.1 COVID-19; N17.9 Acute kidney failure, unspecified; I82.401 Acute embolism and thrombosis of unspecified deep veins of right lower extremity; Z93.3 Colostomy status; I10 Essential (primary) hypertension; L89.150 Pressure ulcer of sacral region, unstageable
CPT/HCPCS: 36415; 80048; 85027

== ENCOUNTER → 2024-08-17 09:11 | Outpatient (REF) | payer OTHER, SELFPAY ==
[2024-08-17 10:52] LABS: Blood Urea Nitrogen 12 mg/dl (9-20); Calcium 8.5 mg/dl (8.4-10.2); Carbon Dioxide 29 mmol/L (22-30); Chloride 103 mmol/L (98-107); Glucose 91 mg/dl (70-99); Potassium 3.7 mmol/L (3.5-5.1); Sodium 134 mmol/L (135-145); eGFR > 60.00
[2024-08-17 10:56] LABS: % Basophils 0.5 % (0-2); % Eosinophils 3.5 % (0-6); % Immature Granulocytes 0.8 % (0-0.5); % Monocytes 8.7 % (1.7-9.3); % Neutrophils 61.5 % (42.2-75.2); Absolute Eosinophils 0.3 10^3/uL (0-0.7); Absolute Immature Granulocytes 0.1 10^3/uL (0-0.05); Absolute Lymphocytes 1.9 10^3/uL (1.2-3.4); Absolute Monocytes 0.7 10^3/uL (0.1-0.6); Absolute Neutrophils 4.7 10^3/uL (1.4-6.5); Hematocrit 28.6 % (39.0-52.0); Hemoglobin 8.4 g/dL (13.0-18.0); Mean Corp Hgb Conc. 29.4 g/dL (33.0-37.0); Mean Corpuscular Hgb 28.9 pg (27.0-31.0); Mean Corpuscular Volume 98.3 fL (80.0-94.0); Nucleated Red Blood Cells % 0 % (-); Platelet Count 286 10^3/uL (130-400); Red Blood Cell Count 2.91 10^6/uL (4.70-6.10); Red Cell Dist. Width 15.4 % (11.5-14.5); White Blood Cell Count 7.7 10^3/uL (4.8-10.8)
== END ==
LOC: OLABP 09:11
PROVIDERS: ATTENDING PHYSICIAN Family Medicine
DX: S06.5X0D Traumatic subdural hemorrhage without loss of consciousness, subsequent encounter (principal); D64.9 Anemia, unspecified; M62.81 Muscle weakness (generalized); B96.5 Pseudomonas (aeruginosa) (mallei) (pseudomallei) as the cause of diseases classified elsewhere; G92.8 Other toxic encephalopathy; U07.1 COVID-19; N17.9 Acute kidney failure, unspecified; I82.401 Acute embolism and thrombosis of unspecified deep veins of right lower extremity; Z93.3 Colostomy status; I10 Essential (primary) hypertension; L89.150 Pressure ulcer of sacral region, unstageable
CPT/HCPCS: 36415; 80048; 85025

== ENCOUNTER 2024-08-20 11:14 | Emergency (ER) | payer OTHER, SELFPAY ==
[2024-08-20 11:20] VITALS: BP 134/89
[2024-08-20 12:00] VITALS: BP 127/76
[2024-08-20 13:00] VITALS: BP 108/65
--- NOTE | 2024-08-20 13:24 | ED.GENMED ---
History of Present Illness
General
Chief Complaint: Skin Problem
Source: patient
Exam Limitations: none
Time Seen by Provider: 08/20/24 11:46
History of Present Illness
History of Present Illness:
Patient sent in for a sacral wound. Has been an ongoing wound since December. Patient has no increasing pain drainage fever. Seen by nurse practitioner, I think for the first time today who sent for further evaluation. Is followed by wound care at
the wound center on Wednesdays.
Past History
Past History
ED Past Medical History: GERD, HTN, Hypercholesterolemia, Psychiatric (Anxiety, Depression ) and Other (Pleural effusion, DVT, Anemia)
ED Past Surgical History: Bowel resection (Colon resection with Colostomy), Orthopedic (Right hip surgery) and Urological (Bilateral Nephrostomy tubes)
Social History
Tobacco: Non-smoker
Alcohol: None
Personal: Single
Living: jail
Review of Systems
Review of Systems
All Other Systems: Not applicable
Constitutional: Denies fever or chills
Phy Exam
Physical Exam
Physical Exam:
GENERAL: Alert and oriented in no apparent distress. Chronically ill-appearing
EYE: Orbits normal.
NECK: Supple
CARDIAC: Regular rate and rhythm without any obvious murmurs.
LUNGS: Clear breath sounds,normal
ABDOMEN: Soft, without focal tenderness or distention. Abdi in place. Cholecystotomy tube in place
NEUROLOGICAL: Alert and oriented , grossly non-focal
SKIN: Warm and dry. Approximately 7 to 8 cm round deep sacral wound. However no surrounding erythema or unusual drainage. No fluctuance. No crepitus.
Course
Vital Signs
Initial and Last Documented VS:
Initial Vital Signs
Temp Pulse Resp BP Pulse Ox
98.4 F 80 16 134/89 97
08/20/24 11:20 08/20/24 11:20 08/20/24 11:20 08/20/24 11:20 08/20/24 11:20
Last Documented Vital Signs
Temp Pulse Resp BP Pulse Ox
98.4 F 76 19 127/76 98
08/20/24 11:20 08/20/24 12:45 08/20/24 12:45 08/20/24 12:00 08/20/24 12:45
MDM/Problems Addressed
Differential Diagnosis Includes:
Patient's wound to me does not appear acutely infected. This may warrant wound VAC at some point clearly needs offloading. However acutely this does not warrant admission or further testing. I did send pictures to the wound care physician. He is
in agreement and will follow-up.
*Pulse Oximetry
Patient hypoxic: no
*Critical Care Note
Total Time (30-74mins, 75-104mins- exclusive of procedures): Not Applicable
ED Attending Note
-
Portions of this chart may have been created with voice recognition software.� Occasional wrong word or��sound alike� substitutions may have occurred due to the inherent limitations of voice recognition software.
Discharge Plan
Departure
Patient Disposition: Home (Routine Discharge)
Date of Disposition: 08/20/24
Time of Disposition: 13:26
Patient with high blood pressure during this ER visit?: Yes
Discharge Problem:
Evaluation of sacral decubitus
Instructions: Wound Care (DC), BLOOD PRESSURE
Prescriptions:
No Action
acetaminophen 325 mg Tablet
650 mg PO Q6H PRN (Reason: mild pain)
Rx Instructions:
not to exceed 3000mg/24 hrs
labetalol 200 mg Tablet
100 mg PO BID
magnesium hydroxide [Milk of Magnesia] 400 mg/5 mL Suspension
30 ml PO HS PRN (Reason: constipation if no BM x3 days)
ascorbic acid (vitamin C) [Vitamin C] 500 mg Tablet
500 mg PO DAILY
bisacodyl 10 mg Suppository
10 mg LA DAILYPRN PRN (Reason: if no results from MOM)
ferrous sulfate 325 mg (65 mg iron) Tablet
325 mg PO DAILY
lansoprazole [Prevacid] 30 mg Capsule,Delayed Release(Dr/Ec)
30 mg PO DAILY
gabapentin 300 mg Capsule
300 mg PO TID
mirtazapine [Remeron] 15 mg Tablet
15 mg PO HS
risperidone [Risperdal] 0.5 mg Tablet
0.5 mg PO BID
Eliquis 5 mg Tablet
5 mg PO BID
sodium chloride 0.9 % Solution
1 irrig IRRIGATION MOWEFR
Vashe 0.033 % Irrigation Solution
1 ea irrigation DAILY
ciprofloxacin HCl 500 mg Tablet
500 mg PO BID Qty: 4 0RF
Referrals:
Chance Joyce MD [Family Provider] -
Activity Restrictions/Additional Instructions:
Pictures of the wound were sent to the wound care physician.
Continue offloading.
To consider wound VAC but this can be decided by the wound care people
Interventions
Interventions:
*Risk Screen - Suicide Last Done: 08/20/24 11:22
*General Assessment Last Done: 08/20/24 11:22
*Neglect/Abuse Screening Last Done: 08/20/24 11:22
*ED COVID-19 Vaccine History Last Done: 08/20/24 11:21
ED-Skin Assessment Last Done: 08/20/24 12:32
Discharge Date and Time
Print Language: SYRIAC
[2024-08-20 14:00] VITALS: BP 106/70
[2024-08-20 15:00] VITALS: BP 129/87
[2024-08-20 16:00] VITALS: BP 107/70
== END 2024-08-20 16:22 | disposition home or self-care (01) ==
LOC: EMR 11:14
PROVIDERS: EMERGENCY PHYSICIAN Emergency Medicine; FAMILY PHYSICIAN Family Medicine; REFERRING PHYSICIAN Nurse Practitioner Primary Care
DX: L89.159 Pressure ulcer of sacral region, unspecified stage (principal); I10 Essential (primary) hypertension; E78.00 Pure hypercholesterolemia, unspecified; F41.9 Anxiety disorder, unspecified; F32.A Depression, unspecified; K21.9 Gastro-esophageal reflux disease without esophagitis; D64.9 Anemia, unspecified; Z86.718 Personal history of other venous thrombosis and embolism; Z98.0 Intestinal bypass and anastomosis status; Z79.01 Long term (current) use of anticoagulants; Z93.3 Colostomy status
CPT/HCPCS: 99282

== ENCOUNTER 2024-08-21 16:23 | Inpatient (IN) | payer OTHER, SELFPAY ==
[2024-08-21 11:30] VITALS: BP 121/79; BMI 25.4
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
[2024-08-21 12:49] LABS: % Basophils 0.4 % (0-2); % Eosinophils 2.2 % (0-6); % Immature Granulocytes 0.7 % (0-0.5); % Monocytes 6.8 % (1.7-9.3); % Neutrophils 72.9 % (42.2-75.2); Absolute Eosinophils 0.2 10^3/uL (0-0.7); Absolute Immature Granulocytes 0.1 10^3/uL (0-0.05); Absolute Lymphocytes 1.8 10^3/uL (1.2-3.4); Absolute Monocytes 0.7 10^3/uL (0.1-0.6); Absolute Neutrophils 7.7 10^3/uL (1.4-6.5); Hematocrit 35.6 % (39.0-52.0); Hemoglobin 10.9 g/dL (13.0-18.0); Mean Corp Hgb Conc. 30.6 g/dL (33.0-37.0); Mean Corpuscular Hgb 29.1 pg (27.0-31.0); Mean Corpuscular Volume 95.2 fL (80.0-94.0); Mean Platelet Volume 8.4 fL (7.4-10.4); Nucleated Red Blood Cells % 0 % (-); Platelet Count 298 10^3/uL (130-400); Red Blood Cell Count 3.74 10^6/uL (4.70-6.10); Red Cell Dist. Width 15.5 % (11.5-14.5); White Blood Cell Count 10.6 10^3/uL (4.8-10.8)
[2024-08-21 13:00] VITALS: BP 125/73
[2024-08-21 13:12] LABS: Blood Urea Nitrogen 16 mg/dl (9-20); Calcium 9.1 mg/dl (8.4-10.2); Carbon Dioxide 28 mmol/L (22-30); Chloride 102 mmol/L (98-107); Estimated Creatinine Clearance 118 ml/min; Glucose 88 mg/dl (70-99); Sodium 138 mmol/L (135-145); eGFR > 60.00
[2024-08-21 16:05] VITALS: BP 122/77
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
[2024-08-21 17:00] VITALS: BP 110/72
[2024-08-21] MEDS: ZOSYN 50 IV ×2 (17:45→23:26)
[2024-08-21 18:23] VITALS: BP 128/69
--- NOTE | 2024-08-21 18:29 | EDRN ---
"1730 started the Zosyan IV after the 2 blood cultures were obtained. Scan did not process properly. Patient admitted to the floor. Upon arrival to the floor the admitting nurse noted the next does of Zosyn was due at 1800. After speaking with "Marry"KYLE Tang and clarifying the medications, this RN call Lyn in the pharmacy to have the zosyn doses re-timed"
[2024-08-21] MEDS: VANCOCIN 540 MG IV (18:32)
[2024-08-21 18:40] VITALS: BMI 23.5
[2024-08-21] MEDS: RISPERDAL 0.5 MG PO (19:36)
[2024-08-21] MEDS: TRANDATE 100 MG PO (19:36)
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
[2024-08-21] MEDS: HEPARIN SC (19:47)
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
[2024-08-21] MEDS: SENOKOT 8.6 MG PO (22:04)
[2024-08-21] MEDS: REMERON 15 MG PO (22:04)
[2024-08-21] MEDS: COLACE 100 MG PO (22:04)
[2024-08-21] MEDS: NEURONTIN 300 MG PO (22:04)
[2024-08-21 23:25] VITALS: BP 109/66
[2024-08-22] MEDS: ZOSYN 50 IV ×3 (05:10→17:27)
[2024-08-22 06:02] LABS: % Basophils 0.5 % (0-2); % Immature Granulocytes 0.7 % (0-0.5); % Lymphocytes 24.6 % (20.5-51.1); % Monocytes 9.4 % (1.7-9.3); % Neutrophils 60.8 % (42.2-75.2); Absolute Eosinophils 0.3 10^3/uL (0-0.7); Absolute Immature Granulocytes 0.1 10^3/uL (0-0.05); Absolute Lymphocytes 1.9 10^3/uL (1.2-3.4); Absolute Monocytes 0.7 10^3/uL (0.1-0.6); Absolute Neutrophils 4.7 10^3/uL (1.4-6.5); Hematocrit 28.8 % (39.0-52.0); Hemoglobin 8.9 g/dL (13.0-18.0); Mean Corp Hgb Conc. 30.9 g/dL (33.0-37.0); Mean Corpuscular Hgb 28.9 pg (27.0-31.0); Mean Corpuscular Volume 93.5 fL (80.0-94.0); Mean Platelet Volume 8.7 fL (7.4-10.4); Nucleated Red Blood Cells % 0 % (-); Platelet Count 266 10^3/uL (130-400); Red Blood Cell Count 3.08 10^6/uL (4.70-6.10); Red Cell Dist. Width 15.6 % (11.5-14.5); White Blood Cell Count 7.7 10^3/uL (4.8-10.8)
[2024-08-22] MEDS: VANCOCIN 200 IV ×2 (06:11→19:50)
[2024-08-22 06:15] LABS: ALT (SGPT) 13 U/L (0-50); AST (SGOT) 15 U/L (17-59); Albumin 2.7 g/dl (3.5-5.0); Alkaline Phosphatase 80 U/L (38-126); Blood Urea Nitrogen 17 mg/dl (9-20); Calcium 8.6 mg/dl (8.4-10.2); Carbon Dioxide 30 mmol/L (22-30); Chloride 102 mmol/L (98-107); Estimated Creatinine Clearance 101 ml/min; Glucose 87 mg/dl (70-99); Sodium 136 mmol/L (135-145); Total Bilirubin 0.3 mg/dl (0.2-1.3); Total Protein 5.5 g/dl (6.3-8.2); eGFR > 60.00
[2024-08-22 07:00] VITALS: BP 110/65
[2024-08-22] MEDS: RISPERDAL 0.5 MG PO ×2 (08:46→19:47)
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
[2024-08-22] MEDS: PROTONIX 40 MG PO (08:50)
[2024-08-22] MEDS: TRANDATE 100 MG PO ×2 (08:50→19:47)
[2024-08-22] MEDS: NEURONTIN 300 MG PO ×3 (08:52→21:48)
[2024-08-22] MEDS: HEPARIN SC ×4 (08:52→19:52)
[2024-08-22] MEDS: VITAMIN C 500 MG PO (08:53)
[2024-08-22] MEDS: FERROUS SULFATE ORAL LIQUID 300 MG PO (08:53)
[2024-08-22] MEDS: DAKIN'S SOLUTION 0.125% 1/4 STRENGTH 30 ML TOPICAL (08:55)
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
[2024-08-22 15:00] VITALS: BP 104/73
[2024-08-22] MEDS: COLACE 100 MG PO (21:48)
[2024-08-22] MEDS: REMERON 15 MG PO (21:48)
[2024-08-22] MEDS: SENOKOT 8.6 MG PO (21:49)
[2024-08-22 23:18] VITALS: BP 143/64
[2024-08-23] VITALS (10 sets, daily range): BP systolic 97–134; BP diastolic 64–89
[2024-08-23] MEDS: ZOSYN 50 IV ×5 (00:27→23:19)
[2024-08-23] MEDS: VANCOCIN 200 IV ×2 (05:55→18:32)
[2024-08-23] MEDS: DAKIN'S SOLUTION 0.125% 1/4 STRENGTH TOPICAL ×2 (08:46)
[2024-08-23] MEDS: FERROUS SULFATE ORAL LIQUID PO (08:48)
[2024-08-23] MEDS: NEURONTIN 300 MG PO ×3 (08:48→21:39)
[2024-08-23] MEDS: TRANDATE 100 MG PO ×2 (08:49→20:24)
[2024-08-23] MEDS: PROTONIX 40 MG PO (08:49)
[2024-08-23] MEDS: RISPERDAL 0.5 MG PO ×2 (08:50→20:24)
[2024-08-23] MEDS: VITAMIN C 500 MG PO (08:50)
[2024-08-23] MEDS: HEPARIN SC (08:51)
[2024-08-23 09:25] LABS: % Basophils 0.5 % (0-2); % Eosinophils 5.5 % (0-6); % Immature Granulocytes 0.6 % (0-0.5); % Lymphocytes 29.1 % (20.5-51.1); % Monocytes 8.1 % (1.7-9.3); % Neutrophils 56.2 % (42.2-75.2); Absolute Eosinophils 0.3 10^3/uL (0-0.7); Absolute Lymphocytes 1.8 10^3/uL (1.2-3.4); Absolute Monocytes 0.5 10^3/uL (0.1-0.6); Absolute Neutrophils 3.5 10^3/uL (1.4-6.5); Hematocrit 30.5 % (39.0-52.0); Hemoglobin 9.3 g/dL (13.0-18.0); Mean Corp Hgb Conc. 30.5 g/dL (33.0-37.0); Mean Corpuscular Hgb 28.8 pg (27.0-31.0); Mean Corpuscular Volume 94.4 fL (80.0-94.0); Mean Platelet Volume 8.4 fL (7.4-10.4); Nucleated Red Blood Cells % 0 % (-); Platelet Count 259 10^3/uL (130-400); Red Blood Cell Count 3.23 10^6/uL (4.70-6.10); Red Cell Dist. Width 15.8 % (11.5-14.5); White Blood Cell Count 6.2 10^3/uL (4.8-10.8)
[2024-08-23 09:38] LABS: APTT 37.1 Sec (23.4-35.0); INR 1.13
[2024-08-23 10:03] LABS: ALT (SGPT) 13 U/L (0-50); AST (SGOT) 15 U/L (17-59); Albumin 2.9 g/dl (3.5-5.0); Alkaline Phosphatase 80 U/L (38-126); Blood Urea Nitrogen 15 mg/dl (9-20); Calcium 8.8 mg/dl (8.4-10.2); Carbon Dioxide 28 mmol/L (22-30); Chloride 102 mmol/L (98-107); Estimated Creatinine Clearance 88 ml/min; Glucose 83 mg/dl (70-99); Potassium 3.9 mmol/L (3.5-5.1); Sodium 137 mmol/L (135-145); Total Bilirubin 0.3 mg/dl (0.2-1.3); Total Protein 5.9 g/dl (6.3-8.2); eGFR > 60.00
--- NOTE | 2024-08-23 10:58 | W.SUR.PREOP ---
Pre-Operative Surgical Note
-
I have examined this patient prior to the performance of the scheduled procedure.
The patient's condition is unchanged from the time of the current History and
Physical and the patient is able to undergo the scheduled procedure.
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
--- NOTE | 2024-08-23 15:30 | WOUNDNOTE ---
[facility] RN note: Patient seen briefly for sacral photo. Patient to go to the OR to drain an abscess in L gluteal area by general surgery. Patient admitted with stage 4 sacral pressure injury, pink with yellow/white tissue in center. Wound undermines up
to 1cm around. Dressing applied. Wound care orders already in for sacral ulcer. L outer buttocks with small red denuded area, silicone border foam applied. L calf with small linear dermal opening, silicone border foam applied. Patient stated he has
soft heel relief boots at [facility]. t/c SPD and ordered [employer] boots. Heels off bed with pillow. 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 Discussed with KYLE Gibbs. Care plan to be updated. Will follow as needed.
--- NOTE | 2024-08-23 15:36 | CM ---
CM reviewed chart, patient off floor- OR today. CM will continue to follow for all discharge planning needs.
Plan; return to [facility] when stable, pending bed availability, will need insurance auth PT/OT evals.
--- NOTE | 2024-08-23 16:26 | W.IMMPOSTOP ---
Surgical Immed Post Op Note
-
Primary Surgeon: Chance Brian MD
Assisting Surgeon: None
Pre-op Diagnosis: Left gluteal abscess, sacral decubitus ulcer
Post-op Diagnosis: Same
Procedure Performed:
1. Exploration of left gluteus
2. Debridement of sacral decubitus ulcer, 2.5 x 4 cm x 1 cm deep)
Anesthesia Type: General
Specimen / Cultures: None
Estimated Blood Loss: 3 cc
Complications: None
Operative Findings: Intraoperative ultrasound used cyst with identification of the left gluteal abscess noted on CT. Local exploration of the area did not reveal any abscess. The wound was closed with interrupted 3-0 Vicryl sutures followed by
Dermabond. His sacral decubitus ulcer looked fairly clean but was debrided back to healthy tissue to 2.5 x 4 x 1 cm deep. The wound was packed wet to dry.
[2024-08-23] MEDS: HEPARIN 5000 UNITS SC (20:24)
[2024-08-23] MEDS: REMERON 15 MG PO (21:39)
[2024-08-23] MEDS: COLACE 100 MG PO (21:40)
[2024-08-23] MEDS: SENOKOT 8.6 MG PO (21:40)
[2024-08-24 03:45] VITALS: BP 108/66
[2024-08-24] MEDS: ZOSYN 50 IV ×3 (05:20→17:28)
[2024-08-24] MEDS: VANCOCIN 200 IV ×2 (05:53→18:28)
[2024-08-24 07:00] VITALS: BP 112/71
[2024-08-24] MEDS: HEPARIN 5000 UNITS SC ×2 (09:08→17:29)
[2024-08-24] MEDS: FERROUS SULFATE ORAL LIQUID 300 MG PO (09:08)
[2024-08-24] MEDS: TRANDATE 100 MG PO ×2 (09:09→21:43)
[2024-08-24] MEDS: VITAMIN C 500 MG PO (09:09)
[2024-08-24] MEDS: PROTONIX 40 MG PO (09:09)
[2024-08-24] MEDS: NEURONTIN 300 MG PO ×3 (09:09→21:40)
[2024-08-24] MEDS: RISPERDAL 0.5 MG PO ×2 (09:09→21:40)
[2024-08-24] MEDS: DAKIN'S SOLUTION 0.125% 1/4 STRENGTH TOPICAL (09:17)
[2024-08-24 10:55] LABS: % Basophils 0.4 % (0-2); % Eosinophils 4.1 % (0-6); % Immature Granulocytes 0.6 % (0-0.5); % Lymphocytes 22.4 % (20.5-51.1); % Monocytes 9.1 % (1.7-9.3); % Neutrophils 63.4 % (42.2-75.2); Absolute Eosinophils 0.3 10^3/uL (0-0.7); Absolute Immature Granulocytes 0.1 10^3/uL (0-0.05); Absolute Lymphocytes 1.8 10^3/uL (1.2-3.4); Absolute Monocytes 0.7 10^3/uL (0.1-0.6); Absolute Neutrophils 5.1 10^3/uL (1.4-6.5); Hematocrit 30.8 % (39.0-52.0); Hemoglobin 9.6 g/dL (13.0-18.0); Mean Corp Hgb Conc. 31.2 g/dL (33.0-37.0); Mean Corpuscular Hgb 28.8 pg (27.0-31.0); Mean Corpuscular Volume 92.5 fL (80.0-94.0); Nucleated Red Blood Cells % 0 % (-); Red Blood Cell Count 3.33 10^6/uL (4.70-6.10); Red Cell Dist. Width 15.6 % (11.5-14.5); White Blood Cell Count 8.1 10^3/uL (4.8-10.8)
[2024-08-24 11:09] LABS: ALT (SGPT) 16 U/L (0-50); AST (SGOT) 22 U/L (17-59); Alkaline Phosphatase 73 U/L (38-126); Blood Urea Nitrogen 13 mg/dl (9-20); Calcium 8.8 mg/dl (8.4-10.2); Carbon Dioxide 26 mmol/L (22-30); Chloride 102 mmol/L (98-107); Estimated Creatinine Clearance 101 ml/min; Glucose 106 mg/dl (70-99); Potassium 4.1 mmol/L (3.5-5.1); Sodium 136 mmol/L (135-145); Total Bilirubin 0.3 mg/dl (0.2-1.3); eGFR > 60.00
--- NOTE | 2024-08-24 11:27 | CM ---
Patient seen bedside, confirmed he would like to return to [facility] once stable. TT to Hospitalist for PT/OT orders. Patient will need insurance auth. [facility] can accept pending bed availability. CM will continue to follow for all discharge
planning needs.
Plan; [facility] pending bed availability, will need auth.
[2024-08-24 12:39] VITALS: BP 112/69; PULSE 76; O2SAT 94
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
[2024-08-24] MEDS: DAKIN'S SOLUTION 0.125% 1/4 STRENGTH 473 ML TOPICAL (17:29)
[2024-08-24] MEDS: COLACE 100 MG PO (21:41)
[2024-08-24] MEDS: REMERON 15 MG PO (21:41)
[2024-08-24] MEDS: SENOKOT 8.6 MG PO (21:41)
[2024-08-24 22:13] LABS: Vancomycin Peak 22.3 ug/ml (18-26)
[2024-08-24 23:25] VITALS: BP 100/54
[2024-08-25] MEDS: ZOSYN 50 IV ×5 (00:14→23:47)
[2024-08-25] MEDS: HEPARIN 5000 UNITS SC ×2 (00:15→09:49)
[2024-08-25 05:20] LABS: % Basophils 0.5 % (0-2); % Immature Granulocytes 0.6 % (0-0.5); % Lymphocytes 36.7 % (20.5-51.1); % Monocytes 10.5 % (1.7-9.3); % Neutrophils 46.7 % (42.2-75.2); Absolute Eosinophils 0.3 10^3/uL (0-0.7); Absolute Lymphocytes 2.4 10^3/uL (1.2-3.4); Absolute Monocytes 0.7 10^3/uL (0.1-0.6); Absolute Neutrophils 3.1 10^3/uL (1.4-6.5); Hematocrit 28.6 % (39.0-52.0); Hemoglobin 9.1 g/dL (13.0-18.0); Mean Corp Hgb Conc. 31.8 g/dL (33.0-37.0); Mean Corpuscular Hgb 29.6 pg (27.0-31.0); Mean Corpuscular Volume 93.2 fL (80.0-94.0); Mean Platelet Volume 8.7 fL (7.4-10.4); Nucleated Red Blood Cells % 0 % (-); Platelet Count 244 10^3/uL (130-400); Red Blood Cell Count 3.07 10^6/uL (4.70-6.10); Red Cell Dist. Width 15.6 % (11.5-14.5); White Blood Cell Count 6.7 10^3/uL (4.8-10.8)
[2024-08-25 05:38] LABS: Vancomycin Trough 15.7 ug/ml (5-20)
[2024-08-25] MEDS: VANCOCIN 200 IV ×2 (05:40→17:34)
[2024-08-25 05:54] LABS: ALT (SGPT) 17 U/L (0-50); AST (SGOT) 18 U/L (17-59); Albumin 2.7 g/dl (3.5-5.0); Alkaline Phosphatase 80 U/L (38-126); Blood Urea Nitrogen 14 mg/dl (9-20); Calcium 8.5 mg/dl (8.4-10.2); Carbon Dioxide 28 mmol/L (22-30); Chloride 104 mmol/L (98-107); Estimated Creatinine Clearance 88 ml/min; Glucose 111 mg/dl (70-99); Potassium 3.8 mmol/L (3.5-5.1); Sodium 138 mmol/L (135-145); Total Bilirubin 0.1 mg/dl (0.2-1.3); Total Protein 5.6 g/dl (6.3-8.2); eGFR > 60.00
[2024-08-25 07:30] VITALS: BP 109/61
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
[2024-08-25 09:07] VITALS: BP 115/71; PULSE 70
[2024-08-25] MEDS: PROTONIX 40 MG PO (09:48)
[2024-08-25] MEDS: TRANDATE 100 MG PO (09:48)
[2024-08-25] MEDS: FERROUS SULFATE ORAL LIQUID 300 MG PO (09:48)
[2024-08-25] MEDS: VITAMIN C 500 MG PO (09:49)
[2024-08-25] MEDS: RISPERDAL 0.5 MG PO ×2 (09:49→21:18)
[2024-08-25] MEDS: NEURONTIN 300 MG PO ×3 (09:49→21:17)
[2024-08-25] MEDS: DAKIN'S SOLUTION 0.125% 1/4 STRENGTH 473 ML TOPICAL ×2 (09:54)
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
[2024-08-25 21:15] VITALS: BP 101/60
[2024-08-25] MEDS: COLACE 100 MG PO (21:18)
[2024-08-25] MEDS: ELIQUIS 5 MG PO (21:18)
[2024-08-25] MEDS: SENOKOT 8.6 MG PO (21:18)
[2024-08-25] MEDS: REMERON 15 MG PO (21:22)
[2024-08-25 23:30] VITALS: BP 95/47
[2024-08-25] MEDS: TRANDATE PO (23:46)
[2024-08-26 04:30] VITALS: BP 106/62
[2024-08-26] MEDS: ZOSYN 50 IV (05:02)
[2024-08-26] MEDS: VANCOCIN 200 IV (05:39)
[2024-08-26 07:30] VITALS: BP 121/66
[2024-08-26] MEDS: DAKIN'S SOLUTION 0.125% 1/4 STRENGTH 473 ML TOPICAL ×2 (09:19)
[2024-08-26] MEDS: PROTONIX 40 MG PO (09:20)
[2024-08-26] MEDS: FERROUS SULFATE ORAL LIQUID 300 MG PO (09:20)
[2024-08-26] MEDS: NEURONTIN 300 MG PO ×2 (09:20→16:51)
[2024-08-26] MEDS: TRANDATE PO (09:20)
[2024-08-26] MEDS: VITAMIN C 500 MG PO (09:21)
[2024-08-26] MEDS: RISPERDAL 0.5 MG PO (09:21)
[2024-08-26] MEDS: ELIQUIS 5 MG PO (09:21)
[2024-08-26 09:41] LABS: % Basophils 0.5 % (0-2); % Eosinophils 4.3 % (0-6); % Immature Granulocytes 0.8 % (0-0.5); % Lymphocytes 29.1 % (20.5-51.1); % Monocytes 9.6 % (1.7-9.3); % Neutrophils 55.7 % (42.2-75.2); Absolute Eosinophils 0.3 10^3/uL (0-0.7); Absolute Immature Granulocytes 0.1 10^3/uL (0-0.05); Absolute Lymphocytes 2.1 10^3/uL (1.2-3.4); Absolute Monocytes 0.7 10^3/uL (0.1-0.6); Absolute Neutrophils 4.1 10^3/uL (1.4-6.5); Hematocrit 30.6 % (39.0-52.0); Hemoglobin 9.3 g/dL (13.0-18.0); Mean Corp Hgb Conc. 30.4 g/dL (33.0-37.0); Mean Corpuscular Hgb 29.2 pg (27.0-31.0); Mean Corpuscular Volume 95.9 fL (80.0-94.0); Mean Platelet Volume 9.2 fL (7.4-10.4); Nucleated Red Blood Cells % 0 % (-); Platelet Count 253 10^3/uL (130-400); Red Blood Cell Count 3.19 10^6/uL (4.70-6.10); Red Cell Dist. Width 15.7 % (11.5-14.5); White Blood Cell Count 7.3 10^3/uL (4.8-10.8)
[2024-08-26 10:03] LABS: ALT (SGPT) 14 U/L (0-50); AST (SGOT) 16 U/L (17-59); Albumin 2.8 g/dl (3.5-5.0); Alkaline Phosphatase 79 U/L (38-126); Blood Urea Nitrogen 12 mg/dl (9-20); Calcium 8.7 mg/dl (8.4-10.2); Carbon Dioxide 29 mmol/L (22-30); Chloride 104 mmol/L (98-107); Estimated Creatinine Clearance 79 ml/min; Glucose 80 mg/dl (70-99); Sodium 137 mmol/L (135-145); Total Bilirubin 0.2 mg/dl (0.2-1.3); Total Protein 5.6 g/dl (6.3-8.2); eGFR > 60.00
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
[2024-08-26 12:36] VITALS: BMI 23.5
--- NOTE | 2024-08-26 13:07 | CM ---
Addendum entered by Deysi Crenshaw 08/26/24 15:39:
Patient is aware that he wioll need to pay for w/c transport.
Addendum entered by Deysi Crenshaw 08/26/24 15:22:
Per physician patient has been cleared for discharge today patient to return to [facility] skilled per admissions at [facility] they have a bed for patient Auth received from [facility] for 5 days skilled 08/26/24 to 08/30/24, NRD 08/30/24, Auth [id number].
Follow up with [phone]
[facility]
[phone]

Original Note:
Chart reviewed and plan is for patient to return to skilled placement when stable, call placed to [facility], patient does not have a bedhold at [facility].
Plan; Skilled placement at [facility], needs Auth through insurance, will need to confirm that there is a bed for patient closer to discharge.
[2024-08-26 13:33] VITALS: BP 123/73; BP 146/81; PULSE 78; O2SAT 97
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
== END 2024-08-26 17:20 | DRG 580 ==
LOC: 4 WEST ACU 16:23
PROVIDERS: Registered Nurse; ADMITTING PHYSICIAN Hospitalist; ATTENDING PHYSICIAN Internal Medicine; CONSULT PHYSICIAN Internal Medicine Infectious Disease; CONSULT PHYSICIAN Surgery; EMERGENCY PHYSICIAN Emergency Medicine; FAMILY PHYSICIAN Nurse Practitioner Primary Care
PROC: 0JJT0ZZ Inspection of Trunk Subcutaneous Tissue and Fascia, Open Approach (ICD-10-PCS; 2024-08-26)
PROC: 0JD70ZZ Extraction of Back Subcutaneous Tissue and Fascia, Open Approach (ICD-10-PCS; 2024-08-26)
DX: L89.153 Pressure ulcer of sacral region, stage 3 (principal); L03.312 Cellulitis of back [any part except buttock and flank]; K21.9 Gastro-esophageal reflux disease without esophagitis; R33.8 Other retention of urine; E78.00 Pure hypercholesterolemia, unspecified; D64.9 Anemia, unspecified; F32.A Depression, unspecified; F41.9 Anxiety disorder, unspecified; I10 Essential (primary) hypertension; B96.20 Unspecified Escherichia coli [E. coli] as the cause of diseases classified elsewhere; B95.7 Other staphylococcus as the cause of diseases classified elsewhere; M60.9 Myositis, unspecified; Z96.0 Presence of urogenital implants; Z93.3 Colostomy status; Z90.49 Acquired absence of other specified parts of digestive tract; Z96.653 Presence of artificial knee joint, bilateral; Z98.1 Arthrodesis status; Z79.01 Long term (current) use of anticoagulants; Z79.899 Other long term (current) drug therapy; Z86.718 Personal history of other venous thrombosis and embolism
CPT/HCPCS: 72197; 74177; 80048; 80053; 80202; 85025; 85610; 85730; 87040; 87070; 87077; 87147; 87186; 87205; 96365; 96375; 97163; 97167; 97530; 99284; A9575; Q9967

== ENCOUNTER → 2024-10-01 15:14 | Outpatient (REF) | payer BC, OTHER, SELFPAY ==
[2024-10-01 16:28] LABS: % Basophils 0.3 % (0-2); % Immature Granulocytes 0.7 % (0-0.5); % Lymphocytes 15.5 % (20.5-51.1); % Monocytes 10.9 % (1.7-9.3); % Neutrophils 71.6 % (42.2-75.2); Absolute Eosinophils 0.1 10^3/uL (0-0.7); Absolute Immature Granulocytes 0.1 10^3/uL (0-0.05); Absolute Lymphocytes 1.2 10^3/uL (1.2-3.4); Absolute Monocytes 0.8 10^3/uL (0.1-0.6); Absolute Neutrophils 5.5 10^3/uL (1.4-6.5); Hematocrit 36.3 % (39.0-52.0); Hemoglobin 11.3 g/dL (13.0-18.0); Mean Corp Hgb Conc. 31.1 g/dL (33.0-37.0); Mean Corpuscular Hgb 29.3 pg (27.0-31.0); Mean Platelet Volume 9.8 fL (7.4-10.4); Nucleated Red Blood Cells % 0 % (-); Platelet Count 219 10^3/uL (130-400); Red Blood Cell Count 3.86 10^6/uL (4.70-6.10); Red Cell Dist. Width 14.5 % (11.5-14.5); White Blood Cell Count 7.6 10^3/uL (4.8-10.8)
[2024-10-01 16:46] LABS: ALT (SGPT) 151 U/L (0-50); AST (SGOT) 38 U/L (17-59); Albumin 3.4 g/dl (3.5-5.0); Alkaline Phosphatase 461 U/L (38-126); Blood Urea Nitrogen 16 mg/dl (9-20); Calcium 8.8 mg/dl (8.4-10.2); Carbon Dioxide 24 mmol/L (22-30); Chloride 102 mmol/L (98-107); Glucose 125 mg/dl (70-99); Potassium 3.3 mmol/L (3.5-5.1); Sodium 137 mmol/L (135-145); Total Bilirubin 1.5 mg/dl (0.2-1.3); Total Protein 6.3 g/dl (6.3-8.2); eGFR > 60.00
== END ==
LOC: OLABP 15:14
PROVIDERS: ATTENDING PHYSICIAN Family Medicine
DX: D64.9 Anemia, unspecified (principal); M62.81 Muscle weakness (generalized); B96.5 Pseudomonas (aeruginosa) (mallei) (pseudomallei) as the cause of diseases classified elsewhere; G92.8 Other toxic encephalopathy; I10 Essential (primary) hypertension; I82.429 Acute embolism and thrombosis of unspecified iliac vein; Z93.3 Colostomy status
CPT/HCPCS: 36415; 80053; 85025

== ENCOUNTER → 2024-10-02 11:40 | Outpatient (REF) | payer BC, OTHER, SELFPAY ==
[2024-10-02 12:57] LABS: Blood Urea Nitrogen 22 mg/dl (9-20); Calcium 8.7 mg/dl (8.4-10.2); Carbon Dioxide 27 mmol/L (22-30); Chloride 107 mmol/L (98-107); Glucose 94 mg/dl (70-99); Potassium 3.9 mmol/L (3.5-5.1); Sodium 138 mmol/L (135-145); eGFR > 60.00
== END ==
LOC: OLABP 11:40
PROVIDERS: ATTENDING PHYSICIAN Family Medicine
DX: D64.9 Anemia, unspecified (principal); N17.9 Acute kidney failure, unspecified; I82.401 Acute embolism and thrombosis of unspecified deep veins of right lower extremity; I10 Essential (primary) hypertension; M62.81 Muscle weakness (generalized); G92.8 Other toxic encephalopathy; E44.0 Moderate protein-calorie malnutrition; F03.90 Unspecified dementia, unspecified severity, without behavioral disturbance, psychotic disturbance, mood disturbance, and anxiety
CPT/HCPCS: 36415; 80048

== ENCOUNTER → 2024-10-05 12:28 | Outpatient (REF) | payer BC, OTHER, SELFPAY | LOC: WOUND 12:28 | PROVIDERS: ATTENDING PHYSICIAN Surgery | DX: L89.154 Pressure ulcer of sacral region, stage 4 (principal); R53.1 Weakness; Z93.3 Colostomy status | CPT/HCPCS: 11043; 99213 ==

== ENCOUNTER → 2024-10-26 08:21 | Outpatient (REF) | payer BC, OTHER, SELFPAY ==
[2024-10-26 10:27] LABS: % Basophils 0.4 % (0-2); % Eosinophils 3.2 % (0-6); % Immature Granulocytes 0.4 % (0-0.5); % Lymphocytes 23.9 % (20.5-51.1); % Monocytes 9.4 % (1.7-9.3); % Neutrophils 62.7 % (42.2-75.2); Absolute Eosinophils 0.3 10^3/uL (0-0.7); Absolute Monocytes 0.8 10^3/uL (0.1-0.6); Absolute Neutrophils 5.1 10^3/uL (1.4-6.5); Hematocrit 34.5 % (39.0-52.0); Hemoglobin 10.9 g/dL (13.0-18.0); Mean Corp Hgb Conc. 31.6 g/dL (33.0-37.0); Mean Corpuscular Hgb 30.4 pg (27.0-31.0); Mean Corpuscular Volume 96.1 fL (80.0-94.0); Mean Platelet Volume 9.4 fL (7.4-10.4); Nucleated Red Blood Cells % 0 % (-); Platelet Count 237 10^3/uL (130-400); Red Blood Cell Count 3.59 10^6/uL (4.70-6.10); Red Cell Dist. Width 14.8 % (11.5-14.5); White Blood Cell Count 8.2 10^3/uL (4.8-10.8)
[2024-10-26 10:47] LABS: Blood Urea Nitrogen 20 mg/dl (9-20); Calcium 9.2 mg/dl (8.4-10.2); Carbon Dioxide 29 mmol/L (22-30); Chloride 106 mmol/L (98-107); Glucose 89 mg/dl (70-99); Potassium 3.8 mmol/L (3.5-5.1); Sodium 139 mmol/L (135-145); eGFR > 60.00
== END ==
LOC: OLABP 08:21
PROVIDERS: ATTENDING PHYSICIAN Family Medicine
DX: D64.9 Anemia, unspecified (principal); N17.9 Acute kidney failure, unspecified; I82.401 Acute embolism and thrombosis of unspecified deep veins of right lower extremity; I10 Essential (primary) hypertension; M62.81 Muscle weakness (generalized); G92.8 Other toxic encephalopathy; E44.0 Moderate protein-calorie malnutrition; F03.90 Unspecified dementia, unspecified severity, without behavioral disturbance, psychotic disturbance, mood disturbance, and anxiety
CPT/HCPCS: 36415; 80048; 85025

== ENCOUNTER → 2024-12-02 10:34 | Outpatient (REF) | payer BC, OTHER, SELFPAY ==
[2024-12-02 10:56] LABS: % Basophils 0.3 % (0-2); % Eosinophils 3.8 % (0-6); % Immature Granulocytes 0.6 % (0-0.5); % Lymphocytes 20.7 % (20.5-51.1); % Monocytes 9.8 % (1.7-9.3); % Neutrophils 64.8 % (42.2-75.2); Absolute Eosinophils 0.3 10^3/uL (0-0.7); Absolute Immature Granulocytes 0.1 10^3/uL (0-0.05); Absolute Lymphocytes 1.8 10^3/uL (1.2-3.4); Absolute Monocytes 0.8 10^3/uL (0.1-0.6); Absolute Neutrophils 5.6 10^3/uL (1.4-6.5); Hematocrit 37.3 % (39.0-52.0); Hemoglobin 12.1 g/dL (13.0-18.0); Mean Corp Hgb Conc. 32.4 g/dL (33.0-37.0); Mean Corpuscular Hgb 30.9 pg (27.0-31.0); Mean Corpuscular Volume 95.4 fL (80.0-94.0); Mean Platelet Volume 9.3 fL (7.4-10.4); Nucleated Red Blood Cells % 0 % (-); Platelet Count 198 10^3/uL (130-400); Red Blood Cell Count 3.91 10^6/uL (4.70-6.10); Red Cell Dist. Width 14.6 % (11.5-14.5); White Blood Cell Count 8.6 10^3/uL (4.8-10.8)
== END ==
LOC: OLABP 10:34
PROVIDERS: ATTENDING PHYSICIAN Family Medicine
DX: D64.9 Anemia, unspecified (principal); N17.9 Acute kidney failure, unspecified; I82.401 Acute embolism and thrombosis of unspecified deep veins of right lower extremity; I10 Essential (primary) hypertension; M62.81 Muscle weakness (generalized); G92.8 Other toxic encephalopathy; E44.0 Moderate protein-calorie malnutrition; F03.90 Unspecified dementia, unspecified severity, without behavioral disturbance, psychotic disturbance, mood disturbance, and anxiety
CPT/HCPCS: 36415; 85025

== ENCOUNTER → 2024-12-25 16:35 | Outpatient (REF) | payer BC, OTHER, SELFPAY ==
[2024-12-25 17:03] LABS: Urine Albumin 2+ (Neg - Trace); Urine Bilirubin Negative (Negative); Urine Character Cloudy (Clear); Urine Color Yellow; Urine Glucose Negative (Negative); Urine Ketone Negative (Negative); Urine Leukocyte 3+ (Negative); Urine Nitrite Negative (Negative); Urine Occult Blood 3+ (Negative); Urine Urobilinogen Negative (Neg - 1+)
[2024-12-25 17:35] LABS: Urine Squamous Cell 0-2 /LPF (Few)
[2024-12-25 17:36] LABS: Urine Bacteria Many (Negative); Urine White Cell >100 /HPF (0-5)
== END ==
LOC: OLAB 16:35
PROVIDERS: ATTENDING PHYSICIAN Family Medicine
DX: D64.9 Anemia, unspecified (principal); N17.9 Acute kidney failure, unspecified; I82.401 Acute embolism and thrombosis of unspecified deep veins of right lower extremity; M62.81 Muscle weakness (generalized); G92.8 Other toxic encephalopathy; E44.0 Moderate protein-calorie malnutrition; F03.90 Unspecified dementia, unspecified severity, without behavioral disturbance, psychotic disturbance, mood disturbance, and anxiety
CPT/HCPCS: 81003; 81015; 87077; 87086

== ENCOUNTER → 2024-12-27 12:44 | Outpatient (REF) | payer BC, OTHER, SELFPAY ==
[2024-12-27 14:08] LABS: Urine Albumin Negative (Neg - Trace); Urine Bilirubin Negative (Negative); Urine Character Slightly Cloudy (Clear); Urine Color Yellow; Urine Glucose Negative (Negative); Urine Ketone Negative (Negative); Urine Leukocyte 1+ (Negative); Urine Nitrite Negative (Negative); Urine Occult Blood 1+ (Negative); Urine Urobilinogen Negative (Neg - 1+)
[2024-12-27 14:22] LABS: Urine Bacteria Many (Negative); Urine Squamous Cell 0-2 /LPF (Few); Urine White Cell 16-20 /HPF (0-5)
== END ==
LOC: OLABP 12:44
PROVIDERS: ATTENDING PHYSICIAN Family Medicine
DX: D64.9 Anemia, unspecified (principal); N17.9 Acute kidney failure, unspecified; I10 Essential (primary) hypertension; M62.81 Muscle weakness (generalized); G92.8 Other toxic encephalopathy; E44.0 Moderate protein-calorie malnutrition; F03.90 Unspecified dementia, unspecified severity, without behavioral disturbance, psychotic disturbance, mood disturbance, and anxiety
CPT/HCPCS: 81003; 81015; 87077; 87086; 87147

== ENCOUNTER → 2025-01-03 10:16 | Outpatient (REF) | payer BC, OTHER, SELFPAY ==
[2025-01-03 10:45] LABS: % Basophils 0.3 % (0-2); % Eosinophils 3.6 % (0-6); % Immature Granulocytes 0.7 % (0-0.5); % Monocytes 10.3 % (1.7-9.3); % Neutrophils 64.1 % (42.2-75.2); Absolute Eosinophils 0.3 10^3/uL (0-0.7); Absolute Immature Granulocytes 0.1 10^3/uL (0-0.05); Absolute Lymphocytes 1.6 10^3/uL (1.2-3.4); Absolute Monocytes 0.8 10^3/uL (0.1-0.6); Absolute Neutrophils 4.9 10^3/uL (1.4-6.5); Hematocrit 37.6 % (39.0-52.0); Hemoglobin 12.5 g/dL (13.0-18.0); Mean Corp Hgb Conc. 33.2 g/dL (33.0-37.0); Mean Corpuscular Hgb 31.9 pg (27.0-31.0); Mean Corpuscular Volume 95.9 fL (80.0-94.0); Mean Platelet Volume 9.1 fL (7.4-10.4); Nucleated Red Blood Cells % 0 % (-); Platelet Count 193 10^3/uL (130-400); Red Blood Cell Count 3.92 10^6/uL (4.70-6.10); Red Cell Dist. Width 13.4 % (11.5-14.5); White Blood Cell Count 7.6 10^3/uL (4.8-10.8)
[2025-01-03 10:48] LABS: ALT (SGPT) 16 U/L (0-50); AST (SGOT) 22 U/L (17-59); Albumin 3.4 g/dl (3.5-5.0); Alkaline Phosphatase 81 U/L (38-126); Blood Urea Nitrogen 15 mg/dl (9-20); Carbon Dioxide 29 mmol/L (22-30); Chloride 107 mmol/L (98-107); Glucose 91 mg/dl (70-99); Potassium 3.9 mmol/L (3.5-5.1); Sodium 141 mmol/L (135-145); Total Bilirubin 0.4 mg/dl (0.2-1.3); Total Protein 5.9 g/dl (6.3-8.2); eGFR > 60.00
== END ==
LOC: OLABP 10:16
PROVIDERS: ATTENDING PHYSICIAN Family Medicine
DX: D64.9 Anemia, unspecified (principal); N17.9 Acute kidney failure, unspecified; I82.401 Acute embolism and thrombosis of unspecified deep veins of right lower extremity; M62.81 Muscle weakness (generalized); G92.8 Other toxic encephalopathy; E44.0 Moderate protein-calorie malnutrition; F03.90 Unspecified dementia, unspecified severity, without behavioral disturbance, psychotic disturbance, mood disturbance, and anxiety
CPT/HCPCS: 36415; 80053; 85025